=== PATIENT | male | born 1975 | race Caucasian/White ===

== ENCOUNTER 2016-09-10 | Outpatient (CLI) | END 2016-09-10 09:42 | disposition critical access hospital (66) | CPT/HCPCS: A0425; A0429 ==

== ENCOUNTER 2016-09-10 10:21 | Emergency (ER) | END 2016-09-10 12:25 | disposition home or self-care (01) | CPT/HCPCS: 12002; 99283; A9270 ==

== ENCOUNTER 2016-10-08 | Outpatient (CLI) | payer MEDICARE, MEDICAID | END 2016-10-08 09:01 | disposition critical access hospital (66) | CPT/HCPCS: A0425; A0429 ==

== ENCOUNTER 2016-10-08 09:20 | Emergency (ER) | payer MEDICARE, MEDICAID | END 2016-10-08 12:04 | disposition home or self-care (01) | DX: S01.81XA Laceration without foreign body of other part of head, initial encounter (principal); W10.9XXA Fall (on) (from) unspecified stairs and steps, initial encounter; S09.90XA Unspecified injury of head, initial encounter ==

== ENCOUNTER 2016-12-02 14:14 | Outpatient (CLI) | payer MEDICARE, MEDICAID | END 2016-12-02 23:59 | DX: G40.309 Generalized idiopathic epilepsy and epileptic syndromes, not intractable, without status epilepticus (principal) ==

== ENCOUNTER 2017-12-24 08:00 | Outpatient (CLI) | payer MEDICARE, MEDICAID ==
[2017-12-24 13:21] LABS: BASOPHILS % (AUTO) 0.5 %; EOSINOPHILS # (AUTO) 0.1 10^3/uL (0.0-0.7); EOSINOPHILS % (AUTO) 2.1 %; HGB - HEMOGLOBIN 14.8 g/dL (14.0-18.0); LYMPHOCYTES # (AUTO) 1.3 10^3/uL (1.5-3.5); MEAN CORPUSCULAR HEMOGLOBIN 32.2 pg (27.0-31.0); MEAN CORPUSCULAR HGB CONC 34.7 g/dL (32.0-36.0); MEAN CORPUSCULAR VOLUME 92.8 fL (80.0-94.0); MEAN PLATELET VOLUME 7.5 fL (7.4-11.4); MONOCYTES # (AUTO) 0.4 10^3/uL (0.0-1.0); MONOCYTES % (AUTO) 11.9 %; NEUTROPHILS # (AUTO) 1.7 10^3/uL (1.5-6.6); NEUTROPHILS % (AUTO) 48.5 %; PLT - PLATELET COUNT 150 10^3/uL (130-450); RED BLOOD COUNT 4.61 10^6/uL (4.70-6.10); RED CELL DISTRIBUTION WIDTH 12.7 % (12.0-15.0); WHITE BLOOD COUNT 3.5 x10^3/uL (4.8-10.8)
[2017-12-24 13:42] LABS: THYROID STIMULATING HORMONE 4.13 uIU/mL (0.34-5.60)
[2017-12-24 13:44] LABS: FREE T4 (FREE THYROXINE) 0.62 ng/dL (0.58-1.64)
[2017-12-24 13:56] LABS: ALBUMIN 4.1 g/dL (3.2-5.5); ALBUMIN/GLOBULIN RATIO 1.5 (1.0-2.2); ALKALINE PHOSPHATASE 48 IU/L (42-121); ALT ALANINE AMINOTRANSFERASE 30 IU/L (10-60); AST ASPARTATE AMINOTRANSFERASE 29 IU/L (10-42); BILIRUBIN,TOTAL 0.5 mg/dL (0.2-1.0); BUN - BLOOD UREA NITROGEN 20 mg/dL (6-20); CARBON DIOXIDE - CO2 26 mmol/L (21-32); CHLORIDE 103 mmol/L (101-111); CHOL/HDL RATIO 3.5 (<5.0); CHOLESTEROL 177 mg/dL; CREATININE 0.7 mg/dL (0.6-1.2); GFR - MDRD 125 (>89); GLUCOSE 92 mg/dL (70-100); HDL CHOLESTEROL 51 mg/dL; LDL CHOLESTEROL,CALCULATED 107 mg/dL; LDL/HDL RATIO 2.1 (<3.6); SODIUM 135 mmol/L (135-145); TOTAL PROTEIN 6.9 g/dL (6.7-8.2); VLDL CHOLESTEROL 19 mg/dL
== END 2017-12-24 08:01 | disposition home or self-care (01) ==
LOC: LAB.N 08:00
PROVIDERS: ATTEND Family Medicine
DX: R56.9 Unspecified convulsions (principal); Z51.81 Encounter for therapeutic drug level monitoring; Z79.899 Other long term (current) drug therapy; F88 Other disorders of psychological development; D72.819 Decreased white blood cell count, unspecified
CPT/HCPCS: 36415; 80053; 80061; 83721; 84439; 84443; 85025

== ENCOUNTER 2017-12-31 13:02 | Outpatient (CLI) | payer MEDICARE, MEDICAID | END 2017-12-31 13:03 | disposition critical access hospital (66) | LOC: EMS 13:02 | PROVIDERS: ATTEND Surgery | DX: S09.93XA Unspecified injury of face, initial encounter (principal); W07.XXXA Fall from chair, initial encounter; Y92.838 Other recreation area as the place of occurrence of the external cause | CPT/HCPCS: A0425; A0429 ==

== ENCOUNTER 2017-12-31 13:32 | Emergency (ER) | payer MEDICARE, MEDICAID ==
[2017-12-31 13:40] VITALS: BP 126/91
--- NOTE | 2017-12-31 13:41 | ED Physician Documentation ---
PD HPI Fall - Stated complaint Stated Complaint: FALL/ CHIN LAC - History obtained from History obtained from: Patient - History of Present Illness Mechanism of injury: Unknown Fall distance: Less than 5ft Where injury occurred: Other ([facility]) Timing - onset: Today Injury(ies) location: Face Quality of pain: Pain Associated symptoms: No: LOC, AMS, Amnesia Symptoms improve with: Rest Worsens with: Movement, Palpation Contributing factors: No: Anticoagulated Similar symptoms before: Diagnosis (laceration) Recently seen: Not recently seen - Additional information Additional information: 42 y/o developmentally delayed adult male was at the [facility] with his caregivers and he fell off of a stool onto his face lacerating his chin. There was not a direct witness to the fall. The patient has a seizure disorder but there is no verification of seizure today. He has not been ill. He is not a historian . Review of Systems Constitutional: denies: Fever Nose: denies: Congestion Throat: denies: Sore throat Respiratory: denies: Cough GI: denies: Vomiting Skin: reports: Laceration (s) Musculoskeletal: denies: Neck pain, Back pain, Extremity pain PD PAST MEDICAL HISTORY - Past Medical History Cardiovascular: None Respiratory: None Neuro: Seizure disorder Endocrine/Autoimmune: None - Past Surgical History Past Surgical History: No - Present Medications Home Medications: Ambulatory Orders Medication Instructions Recorded Confirmed Clobazam [Onfi] 20 mg PO BID 09/20/14 08/14/16 Lacosamide [Vimpat] 200 mg PO BID 09/20/14 08/14/16 Divalproex Sodium [Depakote] 500 mg PO BID 01/14/16 08/14/16 carBAMazepine [TEGretol] 300 mg PO BID 01/14/16 08/14/16 Azithromycin [Zithromax] 250 mg PO DAILY #6 tablet 09/10/16 - Allergies Allergies/Adverse Reactions: Allergies Allergy/AdvReac Type Severity Reaction Status Date / Time No Known Drug Allergies Allergy Verified 09/20/14 11:08 - Social History Does the pt smoke?: No Smoking Status: Never smoker Does the pt drink ETOH?: No Does the pt have substance abuse?: No - Immunizations Immunizations are current?: Yes Immunizations: TDAP current <10years - POLST Patient has POLST: No PD ED PE NORMAL - General General: No acute distress, Well developed/nourished - HEENT HEENT: PERRL, EOMI, Other (There is a 5cm stellate laceration to the chin in a heavily bearded male. ) - Neck Neck: Supple, no meningeal sign, No bony TTP - Respiratory Respiratory: No respiratory distress - Derm Derm: Normal color, Warm and dry, No rash - Extremities Extremities: No deformity, No edema - Neuro Neuro: No motor deficit, No sensory deficit Eye Opening: Spontaneous Motor: Obeys Commands Verbal: Confused GCS Score: 14 - Psych Psych: Normal mood, Normal affect Results - Vitals Vitals: Oxygen O2 Source Room air Procedures - Laceration (location) chin Length in cm: 5 Wound type: Stellate Neurovascular status: Sensory intact, Motor intact, Vascular intact Anesthesia: Lidocaine 1%, With bicarb Wound Preparation: Hibiclens, Irrigated copiously NS, Wound explored, To the base Skin layer closure: Nylon, Interrupted, Size #-0 - enter number (4-0), Sutures - enter # (6) Other: Patient tolerated well, No complications, Neurovascular intact, Dressing applied, Tetanus UTD PD MEDICAL DECISION MAKING - ED course Complexity details: reviewed old records, considered differential, d/w patient, d/w family ED course: 42 y/o autistic male with a 5cm stellate chin laceration is cooperative for suturing. Departure - Departure Disposition: 01 Home, Self Care Clinical Impression: Chin laceration Qualifiers: Encounter type: initial encounter Qualified Code(s): S01.81XA - Laceration without foreign body of other part of head, initial encounter Condition: Stable Instructions: ED Laceration Facial Sutr Tape Follow-Up: Agapito Blanchard MD [Primary Care Provider] - Comments: sutures out in 5-7 days
[2017-12-31] MEDS: BUFFERED LIDOCAINE 10 ML SYRINGE SUBQ STA (14:13)
== END 2017-12-31 14:46 | disposition home or self-care (01) ==
LOC: EDUNIT# → ED 13:32
DX: S01.81XA Laceration without foreign body of other part of head, initial encounter (principal); W07.XXXA Fall from chair, initial encounter; Y92.39 Other specified sports and athletic area as the place of occurrence of the external cause
CPT/HCPCS: 12013; 99282; 99283

== ENCOUNTER 2019-01-19 08:00 | Outpatient (CLI) | payer MEDICARE, MEDICAID ==
[2019-01-19 18:49] LABS: BASOPHILS % (AUTO) 0.5 %; EOSINOPHILS % (AUTO) 0.7 %; HGB - HEMOGLOBIN 14.5 g/dL (14.0-18.0); LYMPHOCYTES % (AUTO) 40.2 %; MEAN CORPUSCULAR HEMOGLOBIN 31.9 pg (27.0-31.0); MEAN CORPUSCULAR HGB CONC 33.5 g/dL (32.0-36.0); MEAN CORPUSCULAR VOLUME 95.3 fL (80.0-94.0); MEAN PLATELET VOLUME 7.7 fL (7.4-11.4); MONOCYTES % (AUTO) 10.2 %; NEUTROPHILS % (AUTO) 48.4 %; PLT - PLATELET COUNT 146 10^3/uL (130-450); RED BLOOD COUNT 4.53 10^6/uL (4.70-6.10); RED CELL DISTRIBUTION WIDTH 13.4 % (12.0-15.0); WHITE BLOOD COUNT 2.6 x10^3/uL (4.8-10.8)
[2019-01-19 18:51] LABS: ABNORMAL LYMPHS % (MANUAL) 0 %
[2019-01-19 19:06] LABS: BAND NEUTROPHILS % (MANUAL) 1 %; DIFFERENTIAL COMMENT MANUAL DIFFERENTIAL; LYMPHOCYTES # (MANUAL) 1.4 10^3/uL (1.5-3.5); LYMPHOCYTES % (MANUAL) 52 %; MONOCYTES # (MANUAL) 0.1 10^3/uL (0.0-1.0); NEUTROPHILS # (MANUAL) 1.1 10^3/uL (1.5-6.6); NEUTROPHILS % (MANUAL) 41 %; PLATELET ESTIMATE, MANUAL NORMAL (130-450,000) (NORMAL); PLATELET MORPHOLOGY NORMAL APPEARANCE (NORMAL); RBC MORPHOLOGY (MULTIPLE) NORMAL APPEARANCE (NORMAL)
[2019-01-19 20:40] LABS: CALCIUM 9.3 mg/dL (8.5-10.3)
[2019-01-19 20:44] LABS: ALBUMIN/GLOBULIN RATIO 1.4 (1.0-2.2); BILIRUBIN,TOTAL 0.8 mg/dL (0.2-1.0); TOTAL PROTEIN 6.8 g/dL (6.7-8.2)
== END 2019-01-19 23:59 | disposition home or self-care (01) ==
LOC: LAB.N 08:00
PROVIDERS: ATTEND Physician Assistant Medical
DX: F88 Other disorders of psychological development (principal); Z51.81 Encounter for therapeutic drug level monitoring
CPT/HCPCS: 36415; 80053; 84443; 85025

== ENCOUNTER 2020-07-28 16:14 | Outpatient (CLI) | payer MEDICARE, MEDICAID | END 2020-07-28 16:15 | disposition home or self-care (01) | LOC: COV 16:14 | PROVIDERS: ATTEND Family Medicine | DX: Z20.828 Contact with and (suspected) exposure to other viral communicable diseases (principal) ==

== ENCOUNTER 2020-08-14 20:31 | Outpatient (CLI) | payer MEDICARE, MEDICAID | END 2020-08-14 20:32 | disposition home or self-care (01) | LOC: COV 20:31 | PROVIDERS: ATTEND Family Medicine | DX: Z20.828 Contact with and (suspected) exposure to other viral communicable diseases (principal) ==

== ENCOUNTER 2020-11-22 08:00 | Outpatient (CLI) | payer MEDICARE, MEDICAID ==
[2020-11-22 12:33] LABS: BASOPHILS % (AUTO) 0.3 %; EOSINOPHILS % (AUTO) 0.3 %; HCT - HEMATOCRIT 44.2 % (42.0-52.0); HGB - HEMOGLOBIN 15.1 g/dL (14.0-18.0); LYMPHOCYTES # (AUTO) 1.2 10^3/uL (1.5-3.5); LYMPHOCYTES % (AUTO) 36.6 %; MEAN CORPUSCULAR HEMOGLOBIN 33.2 pg (27.0-31.0); MEAN CORPUSCULAR HGB CONC 34.2 g/dL (32.0-36.0); MEAN CORPUSCULAR VOLUME 97.1 fL (80.0-94.0); MEAN PLATELET VOLUME 10.4 fL (7.4-11.4); MONOCYTES # (AUTO) 0.4 10^3/uL (0.0-1.0); MONOCYTES % (AUTO) 11.6 %; NEUTROPHILS # (AUTO) 1.7 10^3/uL (1.5-6.6); NEUTROPHILS % (AUTO) 50.9 %; PLT - PLATELET COUNT 142 10^3/uL (130-450); RED BLOOD COUNT 4.55 10^6/uL (4.70-6.10); WHITE BLOOD COUNT 3.3 x10^3/uL (4.8-10.8)
[2020-11-22 12:38] LABS: ALBUMIN 4.2 g/dL (3.2-5.5); ALBUMIN/GLOBULIN RATIO 1.4 (1.0-2.2); BILIRUBIN,TOTAL 0.8 mg/dL (0.2-1.0); CALCIUM 9.2 mg/dL (8.5-10.3); CREATININE 1.1 mg/dL (0.6-1.2); POTASSIUM 4.3 mmol/L (3.5-5.0); TOTAL PROTEIN 7.1 g/dL (6.7-8.2)
[2020-11-22 12:44] LABS: THYROID STIMULATING HORMONE 2.06 uIU/mL (0.34-5.60)
== END 2020-11-22 23:59 | disposition home or self-care (01) ==
LOC: LAB.WCP 08:00
PROVIDERS: ATTEND Family Medicine
DX: F88 Other disorders of psychological development (principal); D72.819 Decreased white blood cell count, unspecified; F79 Unspecified intellectual disabilities; G40.909 Epilepsy, unspecified, not intractable, without status epilepticus
CPT/HCPCS: 36415; 80053; 84443; 85025

== ENCOUNTER 2021-10-27 16:12 | Emergency (ER) | payer MEDICARE, MEDICAID ==
[2021-10-27 16:20] VITALS: BP 139/76
[2021-10-27] MEDS ORDERED: cephALEXin 250 MG CAPSULE PO STA (16:27)
[2021-10-27] MEDS ORDERED: MUPIROCIN 2% OINT 1 GM TOP STA (16:27)
--- NOTE | 2021-10-27 16:29 | ED Physician Documentation ---
History of Present Illness - Stated complaint Stated Complaint: RT THEIGH LUMP - Chief complaint Chief Complaint: General - History obtained from History obtained from: Patient, Caregiver - Additonal information Additional information: 46-year-old gentleman with developmental delay presents with caregiver for lesion on the left thigh, presumed abscess. No history of MRSA and no reported fevers. Review of Systems Unable to obtain: Confused Constitutional: denies: Fever, Chills PD PAST MEDICAL HISTORY - Past Medical History Cardiovascular: None Respiratory: None Endocrine/Autoimmune: None - Past Surgical History Past Surgical History: No - Present Medications Home Medications: Ambulatory Orders Medication Instructions Recorded Confirmed Clobazam [Onfi] 20 mg PO BID 09/20/14 08/14/16 Lacosamide [Vimpat] 200 mg PO BID 09/20/14 08/14/16 Divalproex Sodium [Depakote] 500 mg PO BID 01/14/16 08/14/16 carBAMazepine [TEGretol] 300 mg PO BID 01/14/16 08/14/16 Azithromycin [Zithromax] 250 mg PO DAILY #6 tablet 09/10/16 Mupirocin 2% Oint [Bactroban 2% 1 applic TOP BID #50 gm 10/27/21 Oint] cephALEXin [Keflex] 500 mg PO Q6H #28 cap 10/27/21 - Allergies Allergies/Adverse Reactions: Allergies Allergy/AdvReac Type Severity Reaction Status Date / Time No Known Drug Allergies Allergy Verified 10/27/21 16:20 - Social History Does the pt smoke?: No Smoking Status: Never smoker Does the pt drink ETOH?: No Does the pt have substance abuse?: No - Immunizations Immunizations are current?: Yes Immunizations: TDAP current <10years - POLST Patient has POLST: No PD ED PE NORMAL - Vitals Vital signs reviewed: Yes - General General: Other (He is alert and cooperative, but nonverbal) - Extremities Extremities: Other (There is a denuded area of impetigo on the left anteromedial thigh with some spotty areas of impetigo on the right thigh 2.) Results - Vitals Vitals: Vital Signs - 24 hr 10/27/21 16:15 Temperature 36.5 C Heart Rate 88 Respiratory 18 Rate Blood Pressure 139/76 H O2 Saturation 99 Oxygen O2 Source Room air Departure - Departure Disposition: 01 Home, Self Care Clinical Impression: Impetigo Condition: Good Record reviewed to determine appropriate education?: Yes Instructions: Impetigo Prescriptions: Mupirocin 2% Oint [Bactroban 2% Oint] 1 applic TOP BID #50 gm cephALEXin [Keflex] 500 mg PO Q6H #28 cap Comments: I sent your prescriptions electronically to [facility] in [place]. As discussed he has impetigo, this can be washed briefly with soap and water and then apply the mupirocin ointment once or twice a day under a dressing. In addition I am putting him on oral antibiotics, Keflex. This should heal up pretty quick, if worsening or not better in the next few days please return for reevaluation.
== END 2021-10-27 16:46 | disposition home or self-care (01) ==
LOC: ED 16:12
DX: L01.00 Impetigo, unspecified (principal)
CPT/HCPCS: 99282; A9270

== ENCOUNTER 2022-03-29 16:22 | Outpatient (CLI) | payer MEDICARE, MEDICAID | END 2022-03-29 16:23 | disposition critical access hospital (66) | LOC: EMS 16:22 | DX: R56.9 Unspecified convulsions (principal) | CPT/HCPCS: A0425; A0429 ==

== ENCOUNTER 2022-03-29 16:45 | Emergency (ER) | payer MEDICARE, MEDICAID ==
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
[2022-03-29] MEDS ORDERED: LORazepam 2 MG/ML VIAL IVP STA (17:08)
[2022-03-29 17:16] LABS: BASOPHILS % (AUTO) 0.4 %; EOSINOPHILS % (AUTO) 0.4 %; HCT - HEMATOCRIT 42.8 % (42.0-52.0); HGB - HEMOGLOBIN 14.5 g/dL (14.0-18.0); LYMPHOCYTES # (AUTO) 0.8 10^3/uL (1.5-3.5); MEAN CORPUSCULAR HEMOGLOBIN 32.6 pg (27.0-31.0); MEAN CORPUSCULAR HGB CONC 33.9 g/dL (32.0-36.0); MEAN CORPUSCULAR VOLUME 96.2 fL (80.0-94.0); MEAN PLATELET VOLUME 9.1 fL (7.4-11.4); MONOCYTES # (AUTO) 0.1 10^3/uL (0.0-1.0); MONOCYTES % (AUTO) 2.7 %; NEUTROPHILS # (AUTO) 1.4 10^3/uL (1.5-6.6); NEUTROPHILS % (AUTO) 60.1 %; PLT - PLATELET COUNT 113 10^3/uL (130-450); RED BLOOD COUNT 4.45 10^6/uL (4.70-6.10); WHITE BLOOD COUNT 2.3 x10^3/uL (4.8-10.8)
[2022-03-29 17:17] LABS: SLIDE REVIEW? Indicated
--- NOTE | 2022-03-29 17:22 | XRAY Report ---
PROCEDURE: Chest 1 View X-Ray INDICATIONS: aspiration TECHNIQUE: One view of the chest was acquired. COMPARISON: None FINDINGS: Surgical changes and devices: None. Lungs and pleura: No pleural effusions or pneumothorax. Lungs demonstrate questionable hazy bilater al infrahilar opacities, right more extensive than left. No dense consolidations. Mediastinum: Mediastinal contours appear normal. Heart size is normal. Bones and chest wall: No suspicious bony lesions. Overlying soft tissues appear unremarkable. IMPRESSION: Possible minor bilateral infrahilar alveolar opacities, probably accentuated by lower lung volumes. C onsider follow-up radiograph. Reviewed by: Serina Colorado MD on 03/29/2022 5:21 PM PDT Approved by: Serina Colorado MD on 03/29/2022 5:21 PM PDT Station ID: [id number]
[2022-03-29 17:27] LABS: ALBUMIN 3.9 g/dL (3.2-5.5); ALBUMIN/GLOBULIN RATIO 1.4 (1.0-2.2); BILIRUBIN,TOTAL 0.9 mg/dL (0.2-1.0); CALCIUM 9.1 mg/dL (8.5-10.3); MAGNESIUM 2.1 mg/dL (1.7-2.8); PHOSPHORUS 3.5 mg/dL (2.5-4.6); POTASSIUM 3.9 mmol/L (3.5-5.0); TOTAL PROTEIN 6.7 g/dL (6.7-8.2)
[2022-03-29 17:46] LABS: PLATELET ESTIMATE, MANUAL DECREASED (<130,000) (NORMAL); PLATELET MORPHOLOGY NORMAL APPEARANCE (NORMAL); RBC MORPHOLOGY (MULTIPLE) NORMAL APPEARANCE (NORMAL); WBC MORPHOLOGY (MULTIPLE) NORMAL APPEARANCE (NORMAL)
[2022-03-29] MEDS ORDERED: KETAMINE 500 MG/10 ML VIAL IVP STA (17:50)
[2022-03-29 19:16] LABS: B. PARAPERTUSSIS- RESP PCR PAN NOT DETECTED; B. PERTUSSIS- RESP PCR PANEL NOT DETECTED; C. PNEUMONIAE- RESP PCR PANEL NOT DETECTED; CORONAVIRUS 229E-RESP PCR NOT DETECTED; CORONAVIRUS HKU1-RESP PCR NOT DETECTED; CORONAVIRUS NL63-RESP PCR NOT DETECTED; CORONAVIRUS OC43-RESP PCR NOT DETECTED; HUMAN METAPNEUMOVIRUS NOT DETECTED; INFLUENZA A- RESP PCR PANEL NOT DETECTED; INFLUENZA B - RESP PCR PANEL NOT DETECTED; M. PNEUMONIAE- RESP PCR PANEL NOT DETECTED; PARAINFLUENZA VIRUS 1 NOT DETECTED; PARAINFLUENZA VIRUS 2 NOT DETECTED; PARAINFLUENZA VIRUS 3 NOT DETECTED; PARAINFLUENZA VIRUS 4 NOT DETECTED; RHINOVIRUS/ENTEROVIRUS NOT DETECTED; RSV- RESP PCR PANEL NOT DETECTED; SARS-CoV-2 -RESP PCR PANEL NOT DETECTED
[2022-03-30 06:51] VITALS: BP 119/77
== END 2022-03-30 07:36 | disposition home or self-care (01) ==
LOC: EDUNIT# → ED 16:45
DX: G40.909 Epilepsy, unspecified, not intractable, without status epilepticus (principal); T75.1XXA Unspecified effects of drowning and nonfatal submersion, initial encounter; W67.XXXA Accidental drowning and submersion while in swimming-pool, initial encounter; Y93.11 Activity, swimming
CPT/HCPCS: 36415; 71045; 80053; 80156; 80164; 83735; 84100; 85025; 87633; 93005; 96374; 96375; 99281; 99284; J2060

== ENCOUNTER → 2022-08-09 | Outpatient (CLI) | payer MEDICARE, MEDICAID | END | disposition critical access hospital (66) | LOC: EMS 11:07 | DX: M25.562 Pain in left knee (principal); M25.462 Effusion, left knee | CPT/HCPCS: A0425; A0429 ==

== ENCOUNTER 2022-10-04 10:10 | Emergency (ER) | payer MEDICARE, MEDICAID ==
--- NOTE | 2022-10-04 10:32 | ED Physician Documentation ---
History of Present Illness - Stated complaint Stated Complaint: ASPIRATION - Chief complaint Chief Complaint: Resp - History obtained from History obtained from: EMS - Additonal information Additional information: The patient sent to the emergency department by EMS for chief complaint of cough. He has had a cough for several days and is gagging on his secretions, causing a posttussive emesis. The patient is not reported to have any fevers by staff. He is unable to really offer any information on his own. PD PAST MEDICAL HISTORY - Past Medical History Cardiovascular: None Respiratory: None Neuro: Other Endocrine/Autoimmune: None - Past Surgical History Past Surgical History: No - Present Medications Home Medications: Ambulatory Orders Medication Instructions Recorded Confirmed Clobazam [Onfi] 20 mg PO BID 09/20/14 08/14/16 Lacosamide [Vimpat] 200 mg PO BID 09/20/14 08/14/16 Divalproex Sodium [Depakote] 500 mg PO BID 01/14/16 08/14/16 carBAMazepine [TEGretol] 300 mg PO BID 01/14/16 08/14/16 Azithromycin [Zithromax] 250 mg PO DAILY #6 tablet 09/10/16 Mupirocin 2% Oint [Bactroban 2% 1 applic TOP BID #50 gm 10/27/21 Oint] cephALEXin [Keflex] 500 mg PO Q6H #28 cap 10/27/21 Benzonatate [Tessalon] 200 mg PO TID PRN #20 cap 10/04/22 - Allergies Allergies/Adverse Reactions: Allergies Allergy/AdvReac Type Severity Reaction Status Date / Time No Known Drug Allergies Allergy Verified 10/04/22 10:21 - Social History Does the pt smoke?: No Smoking Status: Never smoker Does the pt drink ETOH?: No Does the pt have substance abuse?: No - Immunizations Immunizations are current?: Yes Immunizations: TDAP current <10years - POLST Patient has POLST: No PD ED PE NORMAL - Vitals Vital signs reviewed: Yes - General General: No acute distress, Well developed/nourished, Other (Alert, nods or shakes his head in answer to simple questions.) - HEENT HEENT: Atraumatic, PERRL, EOMI, Moist mucous membranes - Neck Neck: Supple, no meningeal sign - Cardiac Cardiac: RRR, No murmur, Strong equal pulses - Respiratory Respiratory: No respiratory distress, Clear bilaterally, Other (Occasional, mildly congested cough.) - Abdomen Abdomen: Soft, Non tender, Non distended - Derm Derm: Normal color, Warm and dry, No rash - Extremities Extremities: No deformity, No edema - Neuro Neuro: Other (The patient is alert and responsive, though is nonverbal for the most part. Grossly intact neuro exam otherwise.) - Psych Psych: Normal mood, Normal affect Results - Vitals Vitals: Vital Signs - 24 hr 10/04/22 10/04/22 10:17 10:36 Temperature 36.9 C Heart Rate 92 95 Respiratory 22 23 Rate Blood Pressure 142/92 H 131/91 H O2 Saturation 95 95 Oxygen O2 Source Room air - Rads (name of study) Chest x-ray Radiology: Final report received, See rad report (Negative) PD Medical Decision Making - ED course Complexity details: reviewed results, re-evaluated patient, considered differential ED course: The patient was fairly well-appearing in the emergency department, and had normal vital signs, including normal oxygen saturation. Chest x-ray was performed and found to be negative by radiologist interpretation. I have ordered a respiratory PCR panel, and this is pending at this time. I suspect the patient has a viral illness and most likely, the cough is causing some gagging which leads to posttussive emesis. The staff at the patient's care facility has been informed of the principles of symptomatic management, and also, the usual indications for return and follow-up. They will be notified of any positive results on the respiratory panel when it comes back in a few hours. Departure - Departure Disposition: 01 Home, Self Care Clinical Impression: Upper respiratory infection Qualifiers: URI type: unspecified viral URI Qualified Code(s): J06.9 - Acute upper respiratory infection, unspecified Condition: Stable Instructions: ED Viral Syndrome Prescriptions: Benzonatate [Tessalon] 200 mg PO TID PRN #20 cap PRN Reason: Cough Comments: The chest x-ray looks goodthere is no evidence of pneumonia or aspiration. The cough is most likely caused by when the many viral upper respiratory illnesses that are going around right now. A respiratory PCR panel has been sent and will likely be back in a few hours, though the results of this are unlikely to change control manager. Mario may take the Tessalon Perles that have been prescribed, as needed, to help with the cough. Mostly, though, this cough will need to go away on its own, as with any viral illness, and Mario's immune system will have to fight off the viral cold. Please have him follow-up with his primary care physician as needed. There is no indication for antibiotics at this time.
--- NOTE | 2022-10-04 10:37 | XRAY Report ---
PROCEDURE: Chest 1 View X-Ray INDICATIONS: aspiration, cough TECHNIQUE: One view of the chest was acquired. COMPARISON: Chest x-ray 03/29/2022. FINDINGS: Surgical changes and devices: None. Lungs and pleura: No pleural effusions or pneumothorax. Lungs are clear. Mediastinum: Mediastinal contours appear normal. Heart size is normal. Bones and chest wall: No suspicious bony lesions. Overlying soft tissues appear unremarkable. IMPRESSION: No acute pulmonary process. Reviewed by: Kimberly Gross MD on 10/04/2022 10:35 AM [facility] Approved by: Kimberly Gross MD on 10/04/2022 10:35 AM [facility] Station ID: [id number]
[2022-10-04] MEDS ORDERED: HYDROcodone/ACETAM 7.5 MG/325 MG 15 ML UDC PO STA (10:57)
[2022-10-04 11:21] VITALS: BP 128/92
[2022-10-04 11:27] LABS: B. PARAPERTUSSIS- RESP PCR PAN NOT DETECTED; B. PERTUSSIS- RESP PCR PANEL NOT DETECTED; C. PNEUMONIAE- RESP PCR PANEL NOT DETECTED; CORONAVIRUS 229E-RESP PCR NOT DETECTED; CORONAVIRUS HKU1-RESP PCR NOT DETECTED; CORONAVIRUS NL63-RESP PCR NOT DETECTED; CORONAVIRUS OC43-RESP PCR NOT DETECTED; HUMAN METAPNEUMOVIRUS NOT DETECTED; INFLUENZA A- RESP PCR PANEL NOT DETECTED; INFLUENZA B - RESP PCR PANEL NOT DETECTED; M. PNEUMONIAE- RESP PCR PANEL NOT DETECTED; PARAINFLUENZA VIRUS 1 NOT DETECTED; PARAINFLUENZA VIRUS 2 NOT DETECTED; PARAINFLUENZA VIRUS 3 NOT DETECTED; PARAINFLUENZA VIRUS 4 NOT DETECTED; RHINOVIRUS/ENTEROVIRUS NOT DETECTED; RSV- RESP PCR PANEL DETECTED; SARS-CoV-2 -RESP PCR PANEL NOT DETECTED
== END 2022-10-04 11:26 | disposition home or self-care (01) ==
LOC: EDUNIT# → ED 10:10
DX: J06.9 Acute upper respiratory infection, unspecified (principal); Z20.822 Contact with and (suspected) exposure to COVID-19
CPT/HCPCS: 71045; 87633; 99284; A9270

== ENCOUNTER 2022-11-14 09:48 | Outpatient (CLI) | payer MEDICARE, MEDICAID ==
--- NOTE | 2022-11-14 16:43 | XRAY Report ---
PROCEDURE: Foot 3 View LT INDICATIONS: LEFT FOOT PAIN TECHNIQUE: 3 views of the foot were acquired. COMPARISON: None FINDINGS: Bones: No fractures or dislocations. No suspicious bony lesions. Periarticular osteophyte formatio n at the first metatarsophalangeal joint. There appears to be a chronic fracture deformity of the sec ond metatarsal neck. Soft tissues: No tibiotalar joint effusion. Achilles tendon appears normal. IMPRESSION: 1. First metatarsophalangeal joint osteoarthritis. 2. No acute fracture. No osseous lesion. If symptoms and/or clinical suspicion for pathology continue , further assessment with repeat plain films, or advanced imaging (e.g., CT, MRI, or bone scan) is re commended for further assessment. Reviewed by: Case Raymond MD on 11/14/2022 4:41 PM PST Approved by: Case Raymond MD on 11/14/2022 4:41 PM PST Station ID: [id number]
== END 2022-11-14 09:49 | disposition home or self-care (01) ==
LOC: DI 09:48
PROVIDERS: ATTEND Physician Assistant Medical
DX: M19.072 Primary osteoarthritis, left ankle and foot (principal)

== ENCOUNTER 2023-08-09 14:15 | Outpatient (CLI) | payer MEDICARE, MEDICAID | END 2023-08-09 14:16 | disposition critical access hospital (66) | LOC: EMS 14:15 | DX: R09.89 Other specified symptoms and signs involving the circulatory and respiratory systems (principal) | CPT/HCPCS: A0425; A0429 ==

== ENCOUNTER 2023-08-09 14:31 | Emergency (ER) | payer MEDICARE, MEDICAID ==
--- NOTE | 2023-08-09 14:35 | ED Physician Documentation ---
PD HPI URI - Stated complaint Stated Complaint: COUGH - History obtained from History obtained from: Patient, EMS (their report from caregivers. Enroute they state pt breathing has been okay.), Caregiver (caregivers from residential report to EMS, rita one of his caregivers does subsequently come to ER.) - History of Present Illness Timing - onset: How many hours ago (1), Today Timing duration: Minutes Timing details: Abrupt onset, Now resolved Associated symptoms: Productive cough (caregivers at residential noted the patient to have abrupt onset of coughing with some clerar sputum and difficultly getting breath, lasting several minutes. Was clearing by EMS arrival. Concern for choking but was not eating at the time. Had not been ill earlier nor prior day.). No: Fever Contributing factors: No: Sick contact Similar symptoms before: Has not had sx before Recently seen: Not recently seen Review of Systems Unable to obtain: Other (he is unable to anaswer questions well himself due to developmental delay but does nod yes/no to questions. Info from caregiver.) Constitutional: denies: Fever Respiratory: denies: Dyspnea, Hemoptysis GI: denies: Vomiting, Diarrhea Neurologic: denies: Altered mental status PD PAST MEDICAL HISTORY - Past Medical History Cardiovascular: None Respiratory: None Neuro: Other Endocrine/Autoimmune: None - Past Surgical History Past Surgical History: No - Present Medications Home Medications: Ambulatory Orders Medication Instructions Recorded Confirmed Clobazam [Onfi] 20 mg PO BID 09/20/14 08/14/16 Lacosamide [Vimpat] 200 mg PO BID 09/20/14 08/14/16 Divalproex Sodium [Depakote] 500 mg PO BID 01/14/16 08/14/16 carBAMazepine [TEGretol] 300 mg PO BID 01/14/16 08/14/16 Azithromycin [Zithromax] 250 mg PO DAILY #6 tablet 09/10/16 Mupirocin 2% Oint [Bactroban 2% 1 applic TOP BID #50 gm 10/27/21 Oint] cephALEXin [Keflex] 500 mg PO Q6H #28 cap 10/27/21 Benzonatate [Tessalon] 200 mg PO TID PRN #20 cap 10/04/22 - Allergies Allergies/Adverse Reactions: Allergies Allergy/AdvReac Type Severity Reaction Status Date / Time No Known Drug Allergies Allergy Verified 08/09/23 14:41 - Social History Does the pt smoke?: No Smoking Status: Never smoker Does the pt drink ETOH?: No Does the pt have substance abuse?: No - Immunizations Immunizations are current?: Yes Immunizations: TDAP current <10years - POLST Patient has POLST: No PD ED PE NORMAL - Vitals Vital signs reviewed: Yes - General General: No acute distress, Well developed/nourished, Other (nods answers to questions yes/no, like "do you have chest pain", nods no. ) - HEENT HEENT: Pharynx benign - Neck Neck: Supple, no meningeal sign, No adenopathy - Cardiac Cardiac: RRR, No murmur - Respiratory Respiratory: No respiratory distress, Clear bilaterally - Abdomen Abdomen: Soft, Non tender - Derm Derm: Normal color, Warm and dry - Extremities Extremities: No edema, No calf tenderness / cord - Neuro Neuro: No motor deficit, No sensory deficit Results - Vitals Vitals: Oxygen O2 Source Room air - Labs Labs: Laboratory Tests 08/09/23 15:02 Nasal Adenovirus (PCR) NOT DETECTED Nasal B. parapertussis DNA (PCR) NOT DETECTED Nasal Coronavir 229E PCR NOT DETECTED Nasal Coronavir HKU1 PCR NOT DETECTED Nasal Coronavir NL63 PCR NOT DETECTED Nasal Coronavir OC43 PCR NOT DETECTED Nasal Enterovir/Rhinovir PCR NOT DETECTED Nasal Influenza B PCR NOT DETECTED Nasal Influenza A PCR NOT DETECTED Nasal Parainfluen 1 PCR NOT DETECTED Nasal Parainfluen 2 PCR NOT DETECTED Nasal Parainfluen 3 PCR NOT DETECTED Nasal Parainfluen 4 PCR NOT DETECTED Nasal RSV (PCR) NOT DETECTED Nasal B.pertussis DNA PCR NOT DETECTED Nasal C.pneumoniae (PCR) NOT DETECTED Gamaliel Human Metapneumo PCR NOT DETECTED Nasal M.pneumoniae (PCR) NOT DETECTED Nasal SARS-CoV-2 (PCR) NOT DETECTED - Rads (name of study) chest xray Relevant Findings:: Prelim report reviewed, EMP independent interpretation of test (mild haziness right lower, consider early infiltrate vs atelectasis. ) PD Medical Decision Making - ED course Complexity details: reviewed results (mild haziness right lower lung. Given the abrupt onset of cough and apparent choking without recent illness, I would presume atelectasis. Consider mild aspiration but lungs are clear and he is breathing comfortably. Can see how he does clinically the next couple of days, but appears well now. ), considered differential (has not had recent URI symptoms. Abrupt coughing and trouble breathing for couple of minutes, now resolved. Likely choking episode. Was not eating at the time, so unlikely food. ), d/w patient Departure - Departure Disposition: 01 Home, Self Care Clinical Impression: Choking episode Condition: Stable Record reviewed to determine appropriate education?: Yes Instructions: ED Choking Spell Comments: Mario, you do appear well now with unlabored breathing and clear lung sounds. Your chest x-ray is clear without any signs of pneumonia, fluid in the lungs, collapsed lung or fluid around the lungs. Unclear whether you had a coughing or choking type episode but it appears to be cleared at this time. We did do a respiratory viral panel test to see if you are having an early viral type illness. The results are still pending at this time but we can call you when your results later. At this point you appear well and looks like discharge home would be safe and appropriate. Forms: PCP List Discharge Date/Time: 08/09/23 15:43
[2023-08-09 14:44] VITALS: O2SAT 95
--- NOTE | 2023-08-09 15:30 | XRAY Report ---
PROCEDURE: Chest 1 View X-Ray INDICATIONS: chest pain TECHNIQUE: One view of the chest was acquired. COMPARISON: None. FINDINGS: Surgical changes and devices: None. Lungs and pleura: Hazy right lower lung zone opacity. Mediastinum: Mediastinal contours appear normal. Heart size is normal. Bones and chest wall: No suspicious bony lesions. Overlying soft tissues appear unremarkable. IMPRESSION: Hazy right basilar airspace opacity, either atelectasis or infection. Reviewed by: Jacobo Nelson on 08/09/2023 2:29 PM [facility] Approved by: Jacobo Nelson on 08/09/2023 2:29 PM [facility] Station ID: [id number]
[2023-08-09 15:51] VITALS: BP 139/101
[2023-08-09 16:03] LABS: B. PARAPERTUSSIS- RESP PCR PAN NOT DETECTED; B. PERTUSSIS- RESP PCR PANEL NOT DETECTED; C. PNEUMONIAE- RESP PCR PANEL NOT DETECTED; CORONAVIRUS 229E-RESP PCR NOT DETECTED; CORONAVIRUS HKU1-RESP PCR NOT DETECTED; CORONAVIRUS NL63-RESP PCR NOT DETECTED; CORONAVIRUS OC43-RESP PCR NOT DETECTED; HUMAN METAPNEUMOVIRUS NOT DETECTED; INFLUENZA A- RESP PCR PANEL NOT DETECTED; INFLUENZA B - RESP PCR PANEL NOT DETECTED; M. PNEUMONIAE- RESP PCR PANEL NOT DETECTED; PARAINFLUENZA VIRUS 1 NOT DETECTED; PARAINFLUENZA VIRUS 2 NOT DETECTED; PARAINFLUENZA VIRUS 3 NOT DETECTED; PARAINFLUENZA VIRUS 4 NOT DETECTED; RHINOVIRUS/ENTEROVIRUS NOT DETECTED; RSV- RESP PCR PANEL NOT DETECTED; SARS-CoV-2 -RESP PCR PANEL NOT DETECTED
== END 2023-08-09 15:43 | disposition home or self-care (01) ==
LOC: EDUNIT# → ED 14:31
DX: T17.908A Unspecified foreign body in respiratory tract, part unspecified causing other injury, initial encounter (principal); W44.9XXA Unspecified foreign body entering into or through a natural orifice, initial encounter; Z11.52 Encounter for screening for COVID-19; Z79.899 Other long term (current) drug therapy
CPT/HCPCS: 87633; 99283; 99284

== ENCOUNTER 2023-11-11 12:56 | Outpatient (CLI) | payer MEDICARE, MEDICAID | END 2023-11-11 23:59 | disposition critical access hospital (66) | LOC: EMS 12:56 | DX: S60.511A Abrasion of right hand, initial encounter (principal); W18.30XA Fall on same level, unspecified, initial encounter; Y92.198 Other place in other specified residential institution as the place of occurrence of the external cause; R26.81 Unsteadiness on feet; I95.9 Hypotension, unspecified | CPT/HCPCS: A0425; A0427 ==

== ENCOUNTER 2023-11-11 13:14 | Emergency (ER) | payer MEDICARE, MEDICAID ==
--- NOTE | 2023-11-11 13:31 | ED Physician Documentation ---
PD HPI SEIZURE - Stated complaint Stated Complaint: POSS SZ - Chief complaint Chief Complaint: Neuro - History obtained from History obtained from: Patient, EMS, Caregiver (pt had possible seizure and was dazed, fell and struck head. Acting dazed still. Caregiver says they called EMS for eval per protocol of their facility when there is reasonable forceful head injury and altered.) - History of Present Illness Timing - onset: Today Number of seizures: Multiple (caregiver says they believe he had one or maybe two seizures today. he typically has them 1-2 per month despite regular meds.), Lasted - seconds Description of seizure activity: Generalized Injury during seizure: Fell, Head injury Associated symptoms: Headache History of seizures: Known seizure disorder Contributing factors: No: Off meds, Out of meds PD PAST MEDICAL HISTORY - Past Medical History Cardiovascular: None Respiratory: None Neuro: Other Endocrine/Autoimmune: None - Past Surgical History Past Surgical History: No - Present Medications Home Medications: Ambulatory Orders Medication Instructions Recorded Confirmed Clobazam [Onfi] 20 mg PO BID 09/20/14 08/14/16 Lacosamide [Vimpat] 200 mg PO BID 09/20/14 08/14/16 Divalproex Sodium [Depakote] 500 mg PO BID 01/14/16 08/14/16 carBAMazepine [TEGretol] 300 mg PO BID 01/14/16 08/14/16 Azithromycin [Zithromax] 250 mg PO DAILY #6 tablet 09/10/16 Mupirocin 2% Oint [Bactroban 2% 1 applic TOP BID #50 gm 10/27/21 Oint] cephALEXin [Keflex] 500 mg PO Q6H #28 cap 10/27/21 Benzonatate [Tessalon] 200 mg PO TID PRN #20 cap 10/04/22 - Allergies Allergies/Adverse Reactions: Allergies Allergy/AdvReac Type Severity Reaction Status Date / Time No Known Drug Allergies Allergy Verified 11/11/23 13:30 - Social History Does the pt smoke?: No Smoking Status: Never smoker Does the pt drink ETOH?: No Does the pt have substance abuse?: No - Immunizations Immunizations are current?: Yes Immunizations: TDAP current <10years - POLST Patient has POLST: No PD ED PE NORMAL - Vitals Vital signs reviewed: Yes - General General: No acute distress, Well developed/nourished, Other (nonverbal except some grunts. he does make some sign language gestures and the counselor with him understaood them. he seemed slightly grumppy which counselor says is common for him in unfamiliar settings. ) - HEENT HEENT: Atraumatic - Neck Neck: Supple, no meningeal sign, No bony TTP - Cardiac Cardiac: RRR, No murmur - Respiratory Respiratory: Clear bilaterally - Abdomen Abdomen: Normal bowel sounds, Soft, Non distended, Other (apparent some tender RUQ/epigastric noted by his wincing and pushing my hand away from that area. ) - Derm Derm: Normal color, Warm and dry - Extremities Extremities: Normal ROM s pain Results - Vitals Vitals: Oxygen O2 Source Room air - Labs Labs: Laboratory Tests 11/11/23 11/11/23 13:39 13:39 WBC 2.6 L RBC 4.12 L Hgb 13.1 L Hct 39.5 L MCV 95.9 H MCH 31.8 H MCHC 33.2 RDW 12.1 Plt Count 131 MPV 8.5 Neut # (Auto) 0.8 L Lymph # (Auto) 1.3 L [place] # (Auto) 0.4 Eos # (Auto) 0.1 Baso # (Auto) 0.0 Absolute Nucleated RBC 0.00 Total Counted [employer] Band Neuts % (Manual) Not Reportable Abnorm Lymph % (Manual) Not Reportable Nucleated RBC % 0.0 Neutrophils # (Manual) Not Reportable Lymphocytes # (Manual) Not Reportable Monocytes # (Manual) Not Reportable Eosinophils # (Manual) Not Reportable Basophils # (Manual) Not Reportable Differential Comment MANUAL=AUTO DIFF Manual Slide Review Indicated WBC Morphology NORMAL APPEARANCE Platelet Estimate NORMAL (130-450,000) Platelet Morphology NORMAL APPEARANCE RBC Morph Micro Appear NORMAL APPEARANCE Sodium 138 Potassium 4.4 Chloride 108 Carbon Dioxide 26 Anion Gap 4.0 L BUN 15 Creatinine 0.9 Estimated GFR (MDRD) 91 Glucose 91 Calcium 8.6 Magnesium 1.7 Total Bilirubin 0.6 AST 45 H ALT 42 Alkaline Phosphatase 48 Total Protein 5.7 L Albumin 3.5 Globulin 2.2 Albumin/Globulin Ratio 1.6 Lipase 83 H Last Dose Date Not Reportable Last Dose Time Not Reportable Valproic Acid 56.6 - Rads (name of study) had CT Relevant Findings:: Prelim report reviewed (no acute injury), EMP independent interpretation of test RUQ US Relevant Findings:: Other (US tech - limited study due to pt cooperation but normal appearing GB. ) PD Medical Decision Making - ED course Complexity details: reviewed results, considered differential, other ([facility] counselor with him states the pt apparently ahd a seizure, which is common for him, but then fell as he tried to get up and struck head, with brief LOC. Did basic labs, and ECG and Abd US (as had some tender there) due to difficult history and ROS due to nonverbal developmental delay. Did) Departure - Departure Disposition: Home, Self Care Clinical Impression: Seizure, Seizure disorder, Head contusion Condition: Stable Record reviewed to determine appropriate education?: Yes Comments: We did some basic tests to look for more significant problems. Since Mario did strike his head, we did a CT scan of the head and there is no signs of bleeding or swelling or fracture. We did ultrasound of the abdomen and no signs of pancreas liver or gallbladder problems. There had seem to be perhaps some tenderness in the area. Blood test do not show any signs of inflammation of these organs. Otherwise blood tests appear normal with blood sugar electrolytes and blood count. The valproic acid level is in the normal range. We did do a send out test for his other seizure medicine and the results will come back in a couple of days. Follow-up with his neurologist. Otherwise continue usual medications and diet and activity. Recheck if needed. Forms: PCP List Discharge Date/Time: 11/11/23 16:00
[2023-11-11 13:35] VITALS: BP 90/68; O2SAT 94
[2023-11-11 13:46] LABS: BASOPHILS % (AUTO) 0.8 %; EOSINOPHILS # (AUTO) 0.1 10^3/uL (0.0-0.7); EOSINOPHILS % (AUTO) 2.3 %; HCT - HEMATOCRIT 39.5 % (42.0-52.0); HGB - HEMOGLOBIN 13.1 g/dL (14.0-18.0); LYMPHOCYTES # (AUTO) 1.3 10^3/uL (1.5-3.5); MEAN CORPUSCULAR HEMOGLOBIN 31.8 pg (27.0-31.0); MEAN CORPUSCULAR HGB CONC 33.2 g/dL (32.0-36.0); MEAN CORPUSCULAR VOLUME 95.9 fL (80.0-94.0); MEAN PLATELET VOLUME 8.5 fL (7.4-11.4); MONOCYTES # (AUTO) 0.4 10^3/uL (0.0-1.0); MONOCYTES % (AUTO) 15.3 %; NEUTROPHILS # (AUTO) 0.8 10^3/uL (1.5-6.6); NEUTROPHILS % (AUTO) 32.2 %; PLT - PLATELET COUNT 131 10^3/uL (130-450); RED BLOOD COUNT 4.12 10^6/uL (4.70-6.10); RED CELL DISTRIBUTION WIDTH 12.1 % (12.0-15.0); WHITE BLOOD COUNT 2.6 x10^3/uL (4.8-10.8)
[2023-11-11 13:58] LABS: SLIDE REVIEW? Indicated
[2023-11-11 14:09] LABS: ALBUMIN 3.5 g/dL (3.2-5.5); ALBUMIN/GLOBULIN RATIO 1.6 (1.0-2.2); ALKALINE PHOSPHATASE 48 IU/L (42-121); ALT ALANINE AMINOTRANSFERASE 42 IU/L (10-60); AST ASPARTATE AMINOTRANSFERASE 45 IU/L (10-42); BILIRUBIN,TOTAL 0.6 mg/dL (0.2-1.0); BUN - BLOOD UREA NITROGEN 15 mg/dL (6-20); CALCIUM 8.6 mg/dL (8.5-10.3); CARBON DIOXIDE - CO2 26 mmol/L (21-32); CHLORIDE 108 mmol/L (101-111); CREATININE 0.9 mg/dL (0.6-1.3); GFR - MDRD 91 (>89); GLUCOSE 91 mg/dL (74-104); LIPASE 83 U/L (11-82); MAGNESIUM 1.7 mg/dL (1.7-2.3); POTASSIUM 4.4 mmol/L (3.5-4.5); SODIUM 138 mmol/L (135-145); TOTAL PROTEIN 5.7 g/dL (6.4-8.9); VALPROIC ACID (DEPAKOTE) 56.6 ug/mL
[2023-11-11] MEDS: KETOROLAC 15 MG/ML VIAL IVP STA (14:23)
[2023-11-11] MEDS: SODIUM CHLORIDE 0.9% 1,000 ML IV STA (14:23)
[2023-11-11 14:44] LABS: DIFFERENTIAL COMMENT MANUAL=AUTO DIFF; PLATELET ESTIMATE, MANUAL NORMAL (130-450,000) (NORMAL); PLATELET MORPHOLOGY NORMAL APPEARANCE (NORMAL); RBC MORPHOLOGY (MULTIPLE) NORMAL APPEARANCE (NORMAL); WBC MORPHOLOGY (MULTIPLE) NORMAL APPEARANCE (NORMAL)
--- NOTE | 2023-11-11 14:58 | CT Report ---
PROCEDURE: Head WO INDICATIONS: seizure/fall, struck head, changed LOC TECHNIQUE: Noncontrast 4.5 mm thick angled axial sections acquired from the foramen magnum to the vertex. For r adiation dose reduction, the following was used: automated exposure control, adjustment of mA and/or kV according to patient size. COMPARISON: None. FINDINGS: Image quality: Excellent. CSF spaces: Basal cisterns are patent. No extra-axial fluid collections. Ventricles are normal in size and shape. Brain: No midline shift. No intracranial masses or hemorrhage. Martin-white matter interface is norm al. Skull and face: Calvarium and visualized facial bones are intact, without suspicious lesions. Small right parietal scalp contusion. Sinuses: Visualized sinuses and mastoids are clear. IMPRESSION: No acute intracranial pathology. Reviewed by: Shahrzad Khan MD, PhD on 11/11/2023 2:56 PM PST Approved by: Shahrzad Khan MD, PhD on 11/11/2023 2:56 PM PST Station ID: [id number]
--- NOTE | 2023-11-11 15:08 | Ultrasound Report ---
PROCEDURE: Abdomen Limited INDICATIONS: upper abd pain/tender TECHNIQUE: Real-time focused scanning was performed of the abdomen, with image documentation. COMPARISONS: None. FINDINGS: Liver: Liver is normal in size and homogeneous in echotexture. Gallbladder: Unremarkable. Biliary ducts: Intrahepatic bile ducts are non-dilated. Extrahepatic bile duct caliber measures 4.3 mm. Normal is 6-7 mm or less in diameter, or 10 mm or less post-cholecystectomy. Pancreas: Not visualized due to bowel gas. Right kidney: Normal in size and echotexture. Right kidney measures 10.7 cm long. No hydronephrosis or nephrolithiasis. No solid masses. No complex renal cystic lesions which require follow-up. Aorta: Not visualized due to bowel gas. IVC: Intrahepatic inferior vena cava is patent. Miscellaneous: No free abdominal fluid. IMPRESSION: Unremarkable abdominal ultrasound. Reviewed by: Shahrzad Khan MD, PhD on 11/11/2023 3:06 PM PST Approved by: Shahrzad Khan MD, PhD on 11/11/2023 3:06 PM PST Station ID: [id number]
== END 2023-11-11 16:00 | disposition home or self-care (01) ==
LOC: EDUNIT# → ED 13:14
DX: R56.9 Unspecified convulsions (principal); S00.03XA Contusion of scalp, initial encounter; W18.39XA Other fall on same level, initial encounter
CPT/HCPCS: 36415; 80053; 80164; 80235; 83690; 83735; 85025; 96374; 99284

== ENCOUNTER 2023-11-16 17:44 | Outpatient (CLI) | payer MEDICARE, MEDICAID | END 2023-11-16 17:45 | disposition EMS.NT | LOC: EMS 17:44 | DX: Z03.89 Encounter for observation for other suspected diseases and conditions ruled out (principal) ==

== ENCOUNTER 2023-12-28 14:55 | Outpatient (CLI) | payer MEDICARE, MEDICAID | END 2023-12-28 14:56 | disposition EMS.NT | LOC: EMS 14:55 | DX: S00.81XA Abrasion of other part of head, initial encounter (principal); W18.30XA Fall on same level, unspecified, initial encounter; Y92.480 Sidewalk as the place of occurrence of the external cause ==

== ENCOUNTER 2023-12-31 23:03 | Emergency (ER) | payer MEDICARE, MEDICAID ==
--- NOTE | 2023-12-31 23:39 | ED Physician Documentation ---
History of Present Illness - Stated complaint Stated Complaint: TOOK EXTRA DOSE OF MED - Chief complaint Chief Complaint: General - History obtained from History obtained from: Caregiver - Additonal information Additional information: HPI from caregiver who is in ED at patient's bedside. Patient's prescription medications include clobazam 10mg PO TID. Caregiver missed giving patient his 4 PM dose today and a space control supervisor recommended giving the missed dose at 8 PM (this was around the time the omission of the 4 PM dose was noted) and to skip the nighttime dose which is scheduled for 9 PM; he was t hus going to receive total of 20mg clobazam today with the missed dose given one hour earlier than usual. However, in addition to the 8 PM dose given tonight, another caregiver was unaware of the plan to skip the 9 PM dose and thus he was administered his 9 PM dose as well. He has not exhibited any odd/unusual behaviors and , per caregiver in ED at patient's bedside, he is at baseline mental status and level of interaction. PD PAST MEDICAL HISTORY - Past Medical History Past Medical History: Yes Cardiovascular: None Respiratory: None Neuro: Seizure disorder, Other Endocrine/Autoimmune: None GI: None : None HEENT: None Musculoskeletal: None Derm: None - Past Surgical History Past Surgical History: No - Present Medications Home Medications: Ambulatory Orders Medication Instructions Recorded Confirmed Clobazam [Onfi] 10 mg PO TID 09/20/14 12/31/23 Lacosamide [Vimpat] 100 mg PO BID 09/20/14 12/31/23 Divalproex Sodium [Depakote] 500 mg PO BID 01/14/16 12/31/23 carBAMazepine [TEGretol] 200 mg PO BID 01/14/16 12/31/23 - Allergies Allergies/Adverse Reactions: Allergies Allergy/AdvReac Type Severity Reaction Status Date / Time No Known Drug Allergies Allergy Verified 12/31/23 23:18 - Social History Does the pt smoke?: No Smoking Status: Never smoker Does the pt drink ETOH?: No Does the pt have substance abuse?: No - Immunizations Immunizations are current?: Yes Immunizations: TDAP current <10years - POLST Patient has POLST: No PD ED PE NORMAL - Vitals Vital signs reviewed: Yes - General General: No acute distress, Well developed/nourished, Other (awake, alert. does not participate in conversation. appropriate eye contact. fidgeting at times but caregiver is able to redirect him) - HEENT HEENT: PERRL, EOMI, Moist mucous membranes - Cardiac Cardiac: RRR - Respiratory Respiratory: No respiratory distress, Clear bilaterally Results - Vitals Vitals: Vital Signs - 24 hr 12/31/23 01/01/24 23:13 00:53 Temperature 36.0 C L Heart Rate 72 87 Respiratory 17 18 Rate Blood Pressure 143/100 H 138/87 H O2 Saturation 98 100 Oxygen O2 Source Room air PD Medical Decision Making - ED course Complexity details: considered differential ED course: Given usual total daily dose of clobazam but second and third doses of the day w ere accidentally given 1 hour apart (8 PM and 9 PM, whereas he usual receives a 4 pm dose and then 9 pm dose). He is at baseline mental status and level of interaction per caregiver; given this along with the fact that he did not exceed his usual total daily dosage, further ED observation is not indicated nor emergent testing. Departure - Departure Disposition: 01 Home, Self Care Clinical Impression: Accidental overdose Qualifiers: Encounter type: initial encounter Qualified Code(s): T50.901A - Poisoning by unspecified drugs, medicaments and biological substances, accidental (unintentional), initial encounter Condition: Good Instructions: ED Overdose Accidental Comments: It seems highly unlikely that there will be any adverse effects from the medication taken closer together tonight then as prescribed. It is safe to resume all normal medications at the prescribed dosing and schedules. Discharge Date/Time: 01/01/24 00:53
[2024-01-01 01:01] VITALS: BP 138/87; O2SAT 100
== END 2024-01-01 00:53 | disposition home or self-care (01) ==
LOC: ED 23:03
DX: T50.901A Poisoning by unspecified drugs, medicaments and biological substances, accidental (unintentional), initial encounter (principal); G40.909 Epilepsy, unspecified, not intractable, without status epilepticus; Z79.899 Other long term (current) drug therapy
CPT/HCPCS: 99281; 99282

== ENCOUNTER 2024-03-16 11:45 | Outpatient (CLI) | payer MEDICARE, MEDICAID ==
[2024-03-16 17:49] LABS: BASOPHILS % (AUTO) 0.5 %; EOSINOPHILS # (AUTO) 0.1 10^3/uL (0.0-0.7); EOSINOPHILS % (AUTO) 1.4 %; HCT - HEMATOCRIT 45.9 % (42.0-52.0); HGB - HEMOGLOBIN 15.2 g/dL (14.0-18.0); LYMPHOCYTES # (AUTO) 1.7 10^3/uL (1.5-3.5); LYMPHOCYTES % (AUTO) 45.8 %; MEAN CORPUSCULAR HEMOGLOBIN 31.4 pg (27.0-31.0); MEAN CORPUSCULAR HGB CONC 33.1 g/dL (32.0-36.0); MEAN CORPUSCULAR VOLUME 94.8 fL (80.0-94.0); MEAN PLATELET VOLUME 8.8 fL (7.4-11.4); MONOCYTES # (AUTO) 0.5 10^3/uL (0.0-1.0); MONOCYTES % (AUTO) 12.2 %; NEUTROPHILS # (AUTO) 1.5 10^3/uL (1.5-6.6); NEUTROPHILS % (AUTO) 39.8 %; PLT - PLATELET COUNT 154 10^3/uL (130-450); RED BLOOD COUNT 4.84 10^6/uL (4.70-6.10); RED CELL DISTRIBUTION WIDTH 12.3 % (12.0-15.0); WHITE BLOOD COUNT 3.7 x10^3/uL (4.8-10.8)
[2024-03-16 18:03] LABS: ALBUMIN 4.4 g/dL (3.2-5.5); ALBUMIN/GLOBULIN RATIO 1.8 (1.0-2.2); ALKALINE PHOSPHATASE 61 IU/L (42-121); ALT ALANINE AMINOTRANSFERASE 47 IU/L (10-60); AST ASPARTATE AMINOTRANSFERASE 52 IU/L (10-42); BILIRUBIN,TOTAL 0.8 mg/dL (0.2-1.0); BUN - BLOOD UREA NITROGEN 16 mg/dL (6-20); CALCIUM 9.6 mg/dL (8.5-10.3); CARBON DIOXIDE - CO2 29 mmol/L (21-32); CHLORIDE 104 mmol/L (101-111); CHOL/HDL RATIO 4.8 (<5.0); CHOLESTEROL 209 mg/dL; CREATININE 1.1 mg/dL (0.6-1.3); GFR - MDRD 72 (>89); GLUCOSE 95 mg/dL (74-104); HDL CHOLESTEROL 44 mg/dL; LDL CHOLESTEROL,CALCULATED 134 mg/dL; POTASSIUM 4.1 mmol/L (3.5-4.5); SODIUM 140 mmol/L (135-145); TOTAL PROTEIN 6.8 g/dL (6.4-8.9); TRIGLYCERIDES 157 mg/dL; VLDL CHOLESTEROL 31 mg/dL
[2024-03-16 18:19] LABS: THYROID STIMULATING HORMONE 3.62 uIU/mL (0.34-5.60)
== END 2024-03-16 11:46 | disposition home or self-care (01) ==
LOC: LAB.N 11:45
PROVIDERS: ATTEND Family Medicine
DX: Z00.00 Encounter for general adult medical examination without abnormal findings (principal); Z12.5 Encounter for screening for malignant neoplasm of prostate; Z13.220 Encounter for screening for lipoid disorders; F88 Other disorders of psychological development; D72.819 Decreased white blood cell count, unspecified; G40.909 Epilepsy, unspecified, not intractable, without status epilepticus; Z79.899 Other long term (current) drug therapy
CPT/HCPCS: 36415; 80053; 80061; 84443; 85025; G0103; 83721; 84153